=== PATIENT | female | born 1955 | race Caucasian/White ===

== ENCOUNTER 2017-03-26 11:12 | Inpatient (IN) ==
--- NOTE | 2017-03-26 11:55 | Ultrasound Report ---
US venous doppler LE LT Indication: Swelling left lower extremity. Comparison: None. Technique: Grayscale, spectral, and color Doppler interrogation of the left lower extremity veins was performed. Augmentation and compression was performed. Findings: Grayscale, color Doppler, and pulsed Doppler evaluation of the veins of the left lower extremity demonstrates no evidence of deep venous thrombosis. IMPRESSION: No evidence of deep venous thrombosis in the left lower extremity. PROCEDURE INTERPRETED AT [facility] DEPARTMENT OF RADIOLOGY Final Report Signed by: Dr Eulalio Matthew
[2017-03-26 12:11] LABS: Basophils % 0.2 % (0.0-0.8); Eosinophils % 0.3 % (0.00-10.9); Hematocrit 37.1 VOL% (35.7-47.0); Hemoglobin 11.9 GM/DL (12.0-16.0); Immature Granulocytes % 0.5 %; Immature Granulocytes Absolute 0.07 #; Lymphocytes # 0.9 10*3/uL (1.4-4.0); Lymphocytes % 6.6 % (21.3-54.2); Mean Corpuscular HGB Conc 32.1 GM/DL (32-36); Mean Corpuscular Hemoglobin 29 PG (27-34); Mean Corpuscular Volume 91.6 FL (87-102); Mean Platelet Volume 10.3 FL (9.6-12.0); Monocytes # 0.3 10*3/uL (0.11-0.8); Monocytes % 2.1 % (1.7-12.7); Neutrophils # 12.8 10*3/uL (1.4-7.4); Neutrophils % 90.3 % (38.7-73.9); Platelet Count 309 T/CUMM (130-400); Red Blood Count 4.05 MC/CUMM (3.8-5.5); Red Cell Distribution Width 15.2 % (9.3-17.3); White Blood Count 14.1 T/CUMM (4-12)
[2017-03-26 12:33] LABS: Albumin 3.6 G/DL (3.4-5.0); Bilirubin,Total 0.8 MG/DL (0.2-1.0); Osmolality,Calculated 266.4 MOS/KG (273-304); Potassium 4.1 MMOL/L (3.5-5.1); Total Protein 8.3 G/DL (6.4-8.3)
[2017-03-26] MEDS ORDERED: HYDROmorphone 2 MG/1 ML VIAL IV STA (12:36)
[2017-03-26] MEDS ORDERED: ONDANSETRON 4 MG/2 ML VIAL IV STA (12:36)
[2017-03-26] MEDS ORDERED: HYDROmorphone 2 MG/1 ML VIAL ONE (12:41)
[2017-03-26] MEDS ORDERED: ONDANSETRON 4 MG/2 ML VIAL ONE (12:41)
[2017-03-26] MEDS ORDERED: CLINDAMYCIN INJ 900 MG in PREMIX 1 EACH IV STA (12:46)
[2017-03-26 12:50] LABS: Macrocytosis Slight; Microcytosis Slight; Poikilocytosis 3+
[2017-03-26] MEDS ORDERED: CLINDAMYCIN 600 MG/4 ML VIAL ONE (12:50)
--- NOTE | 2017-03-26 12:55 | Emergency Department Note ---
Arrival - Arrival Chief Complaint: Extremity Problem Stated Complaint: left leg all red pain all down ED Nursing Triage Note: pt has had redness and swelling to lt leg for a few days. pt has an appointment to get an ultrsound but not until the end of the month Mode of Arrival: Wheelchair Source: Patient Time Seen by Provider: 03/26/17 11:27 - History of Present Illness HPI Narrative: 62 y/o white female presents to the ER complaining of left lower ext pain, swelling, erythema, and warmth. Patient states she had a melanoma removed from her left calf along with lymph nodes from her left groin in September. States she has had swelling to left lower ext ever since her surgery. Erythema, warmth , and pain just started two days ago. Also report fever, chills, and body aches. Surgery was performed by Dr. Dietz at [facility]. She is scheduled for a doppler to left lower ext to rule out DVT at the end of this month. Past medical history significant for melanoma. Onset (ago): day(s) (2) Consistency: constant Severity: moderate Quality: aching Allergies/Adverse Reactions: Allergies Allergy/AdvReac Type Severity Reaction Status Date / Time No Known Allergies Allergy Verified 10/08/16 11:23 Home Medications: Home Medications Medication Instructions Recorded Confirmed Type Cyclobenzaprine [Flexeril] 10 mg PO TID #20 tablet 12/26/14 Rx Ibuprofen Tab [Motrin Tab] 800 mg PO Q6H #20 tablet 12/26/14 Rx Methocarbamol [Methocarbamol] 1 tablet PO DAILY 12/26/14 12/26/14 History Tramadol HCl [Tramadol HCl] 1 tablet PO Q4-6H PRN 12/26/14 12/26/14 History Amoxicillin Cap/Tab 500 mg PO Q8HR #20 capsule 10/08/16 Rx Review of System - Review of System 12 point system: reviewed and no additional remarkable complaints except as stated - Review of System Musculoskeletal: Present: leg pain (left lower ext pain, erythema, warmth ) Medical,Surgical,& Family Hx - Medical History Other: History of: Cancer, Miscellaneous Medical Problems (Melanoma) - Social History Smoking Status: Never smoker Frequency of Alcohol Use: None Type of Drug Use: None Exam Vital Signs: Vital Signs Temperature 97.0 F L 03/26/17 11:30 Pulse Rate 78 03/26/17 13:11 Respiratory Rate 18 03/26/17 13:11 Blood Pressure 99/67 03/26/17 13:11 O2 Sat by Pulse Oximetry 100 03/26/17 11:19 - General General appearance: alert, in no apparent distress - ENT ENT exam: Present: normal exam, normal oropharynx, mucous membranes moist - Chest Chest inspection: Present: normal inspection - Respiratory Respiratory exam: Present: normal lung sounds bilaterally - Cardiovascular Cardiovascular exam: Present: regular rate, normal rhythm, normal heart sounds - Abdominal Exam Abdominal exam: Present: soft, normal bowel sounds. Absent: tenderness - Extremities Exam Extremities exam: Present: normal inspection, full ROM, calf tenderness (left ) - Neurological Exam Neurological exam: Present: alert, oriented X3 - Psychiatric Psychiatric exam: Present: normal affect, normal mood - Skin Skin exam: Present: warm, dry, erythema (erythema, warmth and swelling that extends from left foot to left thigh; large amount of swelling; pedal pulse strong and equal bilaterally) Course - Consultations Consultation #1: Hospitalist Time: 12:50 (Will admit to Hospitalist ) Results - Labs CBC & BMP: 03/26/17 11:46 03/26/17 11:46 Lab Results: I have reviewed the patients labs - Diagnostic Findings Procedure: Ultrasound: image reviewed by me, report reviewed by me (venous duplex: negative for DVT ) Disposition Clinical Impression: Cellulitis Case discussed with: patient Condition: Stable
--- NOTE | 2017-03-26 13:43 | Hospitalist History & Physical ---
<Jude Batista - Last Filed: 03/26/17 15:33> Assessment and Plan (1) Cellulitis Status: Acute Assessment and plan: Admit as inpatient. Pt. will receive IV antibiotics. Immobilization and elevation of the leg. Current Visit: Yes (2) Melanoma Status: Chronic Assessment and plan: Pt is s/p cancer removal in September. Current Visit: Yes History of Present Illness Chief complaint: leg pain History of present illness: Ms. Monterroso is a 62 year old white female with a history of skin cancer that presented to the ED today for evaluation of left lower extremity pain and edema. Patient reports that she had a melanoma removed from the left calf area along with lymph nodes from her left groin in September by physician at [facility]. Pt. states that 2 days ago she began to experience pain to the left lower extremity along with erythema and warmth. Patient states that she has a high tolerance for pain but she could no longer "stand it" and came for further evaluation. Patient also states that she had a fever along with chills and body aches. Patient denies any shortness of breath or chest pain associated with those symptoms. On examination in the ED, the left lower extremity is very edematous with 3+ pitting edema, radiated, and warm to touch. Patient reported that she was scheduled to have a Doppler performed to the left lower extremity to rule out DVT later this month. Venous Doppler study was performed showed no evidence of DVT left lower extremity. Patient will be admitted to the hospitalist service for further therapy. Allergies Allergy/AdvReac Type Severity Reaction Status Date / Time No Known Allergies Allergy Verified 10/08/16 11:23 Medical,Surgical,& Family Hx - Medical History Other: History of: Cancer, Miscellaneous Medical Problems (Melanoma) - Social History Smoking Status: Never smoker Frequency of Alcohol Use: None Type of Drug Use: None Functional capacity: independent ambulation - Constitutional Constitutional: Present: chills, fever(s), night sweats - EENT Eyes: Absent: loss of vision Ears: Absent: decreased hearing Nose, mouth and throat: Absent: headache(s) - Cardiovascular Cardiovascular: Present: edema. Absent: chest pain at rest, dyspnea on exertion , radiating jaw, neck or arm pain - Gastrointestinal Gastrointestinal: Absent: abdominal pain, nausea, vomiting - Genitourinary Genitourinary: Absent: difficulty urinating, hematuria - Musculoskeletal Musculoskeletal: Present: limited range of motion - Neurological Neurological: Absent: confusion, dizziness - Psychiatric Psychiatric: Absent: confusion Exam - Constitutional Vitals: Period Temp Pulse Resp BP Sys/Anderson Pulse Ox Last 24 Hr 97.0 F-97.0 F 78-81 18-18 99-113/67-83 100 General appearance: no acute distress, over weight - Head Head exam: Present: normal inspection, normocephalic - Eye Eye exam: Present: EOMI Pupils: Present: LEONARDA - ENT ENT exam: Present: normal exam - Neck Neck exam: Present: normal inspection. Absent: thyromegaly - Respiratory Respiratory exam: Present: clear to auscultation bilaterally. Absent: wheezes - Cardiovascular Cardiovascular exam: Present: regular rate and rhythm - GI/Abdominal GI/Abdominal exam: Present: normal bowel sounds, soft. Absent: tenderness - Extremities Exam Extremities exam: Present: normal capillary refill, calf tenderness, edema (3+ pitting edema to left lower extremity. This leg is reddened and very warm to touch. ). Absent: full ROM - Neurological Exam Neurological exam: Present: alert, oriented X3 - Psychiatric Psychiatric exam: Present: normal affect, normal mood - Skin Skin exam: Present: normal color, warm, dry Results - Labs CBC & BMP: 03/26/17 11:46 03/26/17 11:46 Lab Results: I have reviewed the past 24 hour labs <Elisabet Dumont - Last Filed: 03/26/17 17:01> History of Present Illness History of present illness: Ms. Monterroso is a 62 year old female who had surgery for a melanoma at the left calf area and had since been having some occasional swellings on her left LE. She developed pain, erythema, warmth over the last two days that progressed.He is on admission for cellulitis and Doppler USS showed no DVT. Plan IV Cleocin Blood cultures DVT prophylaxis Elevate leg Pain meds Agree with IVF, BP is borderline low UA, A!C, Lipids, TSH CBC, BMP in am Exam - Constitutional Vitals: Period Temp Pulse Resp BP Sys/Anderson Pulse Ox Last 24 Hr 97.0 F-98.3 F 70-81 16-18 90-113/63-83 94-100 Results - Labs CBC & BMP: 03/26/17 11:46 03/26/17 11:46
[2017-03-26] MEDS ORDERED: ACETAMINOPHEN 325 MG TABLET PO PRN (14:15)
[2017-03-26] MEDS ORDERED: ONDANSETRON 4 MG/2 ML VIAL IV PRN (14:15)
[2017-03-26] MEDS: SODIUM CHLORIDE 0.9% 1,000 ML IV SCH (14:45)
[2017-03-26] MEDS ORDERED: MORPHINE 2 MG/1 ML SYRINGE IV PRN (17:00)
[2017-03-26] MEDS: ENOXAPARIN 40 MG/0.4 ML SYRINGE SUBCUT SCH (20:59)
[2017-03-26] MEDS: CLINDAMYCIN INJ 900 MG in PREMIX 1 EACH IV SCH (21:00)
[2017-03-27] MEDS ORDERED: SODIUM CHLORIDE 0.9% 500 ML IV ONE (00:59)
[2017-03-27] MEDS: CLINDAMYCIN INJ 900 MG in PREMIX 1 EACH IV SCH ×3 (04:54→21:12)
[2017-03-27] MEDS: SODIUM CHLORIDE 0.9% 1,000 ML IV SCH ×2 (05:00→19:32)
[2017-03-27 06:38] LABS: Basophils % 0.2 % (0.0-0.8); Eosinophils % 0.3 % (0.00-10.9); Hematocrit 27.8 VOL% (35.7-47.0); Hemoglobin 8.9 GM/DL (12.0-16.0); Immature Granulocytes % 0.6 %; Immature Granulocytes Absolute 0.08 #; Lymphocytes # 1.2 10*3/uL (1.4-4.0); Lymphocytes % 9.3 % (21.3-54.2); Mean Corpuscular Hemoglobin 30 PG (27-34); Mean Corpuscular Volume 92.4 FL (87-102); Mean Platelet Volume 10.8 FL (9.6-12.0); Monocytes # 0.5 10*3/uL (0.11-0.8); Monocytes % 3.5 % (1.7-12.7); Neutrophils # 11.2 10*3/uL (1.4-7.4); Neutrophils % 86.1 % (38.7-73.9); Platelet Count 279 T/CUMM (130-400); Red Blood Count 3.01 MC/CUMM (3.8-5.5); Red Cell Distribution Width 15.2 % (9.3-17.3)
[2017-03-27 06:43] LABS: Apearance,Urine CLEAR (Clear); Bilirubin,Urine Negative (Negative); Blood, Urine Negative (Negative); Glucose,Urine (UA) Negative (Negative); Ketones,Urine Negative (Negative); Nitrite,Urine Negative (Negative); Protein,Urine 30 MG/DL; RBC,Urine <1 /HPF (0-4); Squamous Epithelial Cell,Urine Occasional /HPF (0-10); Urine Color Yellow (Yellow); Urine Specific Gravity 1.017 (1.001-1.035); WBC,Urine 3 /HPF (0-6)
[2017-03-27 07:22] LABS: Calcium 8.3 MG/DL (8.5-10.1); Magnesium 2.2 MG/DL (1.8-2.4); Osmolality,Calculated 271.8 MOS/KG (273-304); Potassium 4.3 MMOL/L (3.5-5.1); Risk Ratio 5.42; Thyroid Stimulating Hormone 74.3 uIU/ml (0.358-3.74); VLDL CHOLESTEROL 19.4 MG/DL
[2017-03-27] MEDS: PANTOPRAZOLE 40 MG TABLET PO SCH (09:32)
--- NOTE | 2017-03-27 13:11 | Hospitalist Progress Note ---
Assessment and Plan (1) Left leg cellulitis Status: Acute Assessment and plan: Continue with Cleocin, pain meds. .BC-showed no growth so far. Doppler negative for a DVT. Wound care Nurse consult for possible wrapping to reduce edema Current Visit: Yes (2) Melanoma Status: Chronic Assessment and plan: Pt is s/p cancer removal in September. Current Visit: Yes (3) Hypotension Status: Acute Assessment and plan: continue ivF Current Visit: Yes (4) Hypothyroidism Status: Acute Assessment and plan: Will start synthroid Current Visit: Yes Hospitalist: Subjective Interval history: Patient states she is hurting in her leg leg. Exam - Constitutional Vitals: Period Temp Pulse Resp BP Sys/Anderson Pulse Ox Last 24 Hr 96.4 F-98.3 F 64-78 16-20 78-99/43-67 90-95 General appearance: no acute distress - Head Head exam: Present: normal inspection - Neck Neck exam: Present: normal inspection - Respiratory Respiratory exam: Present: clear to auscultation bilaterally - Cardiovascular Cardiovascular exam: Present: regular rate and rhythm - GI/Abdominal GI/Abdominal exam: Present: normal bowel sounds - Extremities Exam Extremities exam: Present: other (swelling redness and tenderness of the left leg) - Neurological Exam Neurological exam: Present: alert, oriented X3 Results - Labs CBC & BMP: 03/27/17 05:26 03/27/17 05:26 Lab Results: I have reviewed the past 24 hour labs
[2017-03-27] MEDS: ENOXAPARIN 40 MG/0.4 ML SYRINGE SUBCUT SCH (21:13)
[2017-03-28] MEDS: CLINDAMYCIN INJ 900 MG in PREMIX 1 EACH IV SCH ×3 (05:48→20:31)
[2017-03-28] MEDS: LEVOTHYROXINE 75 MCG TABLET PO SCH (06:40)
[2017-03-28 07:12] LABS: Basophils % 0.2 % (0.0-0.8); Eosinophils # 0.1 10*3/uL (0.0-0.87); Eosinophils % 0.9 % (0.00-10.9); Hematocrit 27.9 VOL% (35.7-47.0); Immature Granulocytes % 1.2 %; Immature Granulocytes Absolute 0.16 #; Lymphocytes # 1.3 10*3/uL (1.4-4.0); Lymphocytes % 9.3 % (21.3-54.2); Mean Corpuscular HGB Conc 32.3 GM/DL (32-36); Mean Corpuscular Hemoglobin 30 PG (27-34); Mean Corpuscular Volume 92.4 FL (87-102); Mean Platelet Volume 10.2 FL (9.6-12.0); Monocytes # 0.7 10*3/uL (0.11-0.8); Monocytes % 5.1 % (1.7-12.7); Neutrophils # 11.3 10*3/uL (1.4-7.4); Neutrophils % 83.3 % (38.7-73.9); Platelet Count 294 T/CUMM (130-400); Red Blood Count 3.02 MC/CUMM (3.8-5.5); Red Cell Distribution Width 15.3 % (9.3-17.3); White Blood Count 13.6 T/CUMM (4-12)
[2017-03-28 07:44] LABS: Calcium 7.9 MG/DL (8.5-10.1); Osmolality,Calculated 271.8 MOS/KG (273-304)
[2017-03-28 07:53] LABS: Band Neutrophils 3 % (0-10); Hypochromasia Slight; Lymphocytes 5 % (20-55); Microcytosis Slight; Segmented Neutrophils 91 % (50-85); Total Cells Counted 100
[2017-03-28] MEDS: PANTOPRAZOLE 40 MG TABLET PO SCH (09:35)
[2017-03-28] MEDS: SODIUM CHLORIDE 0.9% 1,000 ML IV SCH (09:41)
--- NOTE | 2017-03-28 14:37 | Hospitalist Progress Note ---
Assessment and Plan (1) Left leg cellulitis Status: Acute Assessment and plan: Not really improving. Continue with Cleocin, pain meds. .BC-showed no growth so far. Doppler negative for a DVT. Wound care Nurse consult for possible wrapping to reduce edema Plan ID consult MRI of the leg Current Visit: Yes (2) Melanoma Status: Chronic Assessment and plan: Pt is s/p cancer removal in September. Current Visit: Yes (3) Hypotension Status: Acute Assessment and plan: stable, will dc IVF Current Visit: Yes (4) Hypothyroidism Status: Acute Assessment and plan: Continue with synthroid Current Visit: Yes Hospitalist: Subjective Interval history: patient seen. Cellulitis is not really improving. ID has been consulted. Exam - Constitutional Vitals: Period Temp Pulse Resp BP Sys/Anderson Pulse Ox Last 24 Hr 97.1 F-98.0 F 64-74 16-20 88-104/52-68 90-97 General appearance: no acute distress, morbidly obese - Head Head exam: Present: normal inspection - Respiratory Respiratory exam: Present: clear to auscultation bilaterally - Cardiovascular Cardiovascular exam: Present: regular rate and rhythm - GI/Abdominal GI/Abdominal exam: Present: normal bowel sounds - Extremities Exam Extremities exam: Present: other (leg leg cellultitis) - Neurological Exam Neurological exam: Present: alert, oriented X3 Results - Labs CBC & BMP: 03/28/17 06:53 03/28/17 06:53 Lab Results: I have reviewed the past 24 hour labs
[2017-03-28] MEDS: DESITIN 4OZ/NYSTATIN 15 GRAM MIXTURE PASTE TOP SCH ×2 (15:10→20:32)
--- NOTE | 2017-03-28 16:13 | Infectious Disease Consult ---
Assessment and Plan (1) Cellulitis Status: Acute Assessment and plan: Suspect streptococcal is because of the cellulitis I am surprised that she has not improved on the clindamycin. Recommendations at cefazolin 1 g IV every 6 hours. Will review tomorrow and if she is worse then we may have to switch from clindamycin to vancomycin. Thank you very much for the consult. Will follow. Discussed with Dr. Luong Current Visit: Yes (2) Candidal intertrigo Status: Acute Assessment and plan: This is quite significant. Will prescribe a 5 day course of oral fluconazole and also give clotrimazole cream for topical application. Current Visit: Yes History of Present Illness Chief complaint: Cellulitis left leg History of present illness: Ms. Monterroso is a 62 year old female was well until September this year when she was diagnosed with melanoma to posterior aspect of left leg. She had surgical resection and also resection of some of the left inguinal lymph nodes. As result of the surgery patient has chronic swelling on the left leg. She presented 2 days ago with 1 day history of redness and worsening of the baseline swelling of her left leg and thigh. There was associated pain especially with walking. She had chills but never fever. She came to the hospital and was assessed as having cellulitis and started on clindamycin. Today the redness is a bit worse as is the swelling and so I am asked to assist with management. Home Medications Medication Instructions Recorded Confirmed Type No Known Home Medications [No 03/28/17 03/28/17 History Known Home Medications] Allergies Allergy/AdvReac Type Severity Reaction Status Date / Time No Known Allergies Allergy Verified 10/08/16 11:23 12 point system: reviewed and no additional remarkable complaints except as stated (Per HPI) Medical,Surgical,& Family Hx - Medical History Other: History of: Cancer, Miscellaneous Medical Problems (Melanoma) - Family History Family History: Reports;: Family Cancer (brother), Family Diabetes (dad), Family Heart Disease (dad), Family Stroke (dad) Denies;: Family Psychiatric Problems - Social History Smoking Status: Never smoker Frequency of Alcohol Use: None Type of Drug Use: None Infectious Disease Exam H&P - Constitutional Vitals: Vital Signs Temp Pulse Resp BP Pulse Ox 98.0 F 73 16 91/55 92 L 03/28/17 12:00 03/28/17 12:00 03/28/17 14:00 03/28/17 12:00 03/28/17 12:00 Intake and Output 03/28/17 03/28/17 03/28/17 07:59 15:59 23:59 Intake Total 50 / 50 2120 / 2120 Output Total 420 / 420 Balance 50 / 50 1700 / 1700 Intake: IV 50 / 50 1000 / 1000 Cleocin Inj 900 mg In 50 / 50 Premix 1 Each @ 100 mls/ hr IV Q8H JESIKA Rx#: [id number] Ns 1,000 ml @ 75 mls/hr 1000 / 1000 IV .[id number] JESIKA Rx#: [id number] Intake - Additional IV 700 / 700 Volume (mLs) Oral 420 / 420 Output: Urine 420 / 420 Other: Voiding Method Toilet # Voids 1 2 Exam: General: Patient relatively comfortable but a bit unkempt HEENT: Mucous membranes pink and moist, anicteric acyanotic, LEONARDA, no oropharyngeal exudates Neck: Supple, no thyroid gland enlargement Respiratory system: Breath sounds vesicular, no crepitations or wheezes Cardiovascular: Normal S1 and S2, no murmurs appreciated Abdomen: Normal bowel sounds, soft nontender throughout, no organomegaly or mass Genitourinary: No suprapubic pain or bladder distention Extremities: Moderate to severe edema of left lower extremity from leg to thigh , there is diffuse erythema over dorsal foot extending up leg and involving patches of the thigh. There is a tender to touch and hyperemic. No open wounds or areas of draining. Skin: Erythematous macerated rash in left groin crease and also intergluteal cleft Reports - Labs CBC & BMP: 03/28/17 06:53 03/28/17 06:53 Labs: Laboratory Results - last 24 hr 03/28/17 03/28/17 06:53 06:53 WBC 13.6 H RBC 3.02 L Hgb 9.0 L Hct 27.9 L MCV 92.4 MCH 30 MCHC 32.3 RDW 15.3 Plt Count 294 MPV 10.2 Neut % (Auto) 83.3 H Lymph % (Auto) 9.3 L Gregory % (Auto) 5.1 Eos % (Auto) 0.9 Baso % (Auto) 0.2 Neut # (Auto) 11.3 H Lymph # (Auto) 1.3 L Gregory # (Auto) 0.7 Eos # (Auto) 0.1 Baso # (Auto) 0.0 Total Counted 100 Immature Gran % 1.2 Nucleated RBC % 0.0 Immature Gran # 0.16 Segmented Neutrophils 91 H Band Neutrophils 3 Lymphocytes 5 L Monocytes 1 L Nucleated RBCs # 0.00 Immature Plt Fraction 0.0 Hypochromasia Slight Microcytosis Slight Morphology Comment Sodium 137 Potassium 4.0 Chloride 106 Carbon Dioxide 25 Anion Gap 10.0 BUN 9 Creatinine 0.80 GFR Calculation 105 BUN/Creatinine Ratio 11.00 Glucose 93 Calculated Osmolality 271.8 L Calcium 7.9 L - Reports Microbiology: Microbiology 03/26/17 11:46 Blood Culture - Preliminary Blood No growth at 1 day 03/26/17 11:46 Blood Culture - Preliminary Blood No growth at 1 day - Diagnostic Findings Procedure: Ultrasound: report reviewed by me (Venous Doppler negative for DVT left leg)
[2017-03-28] MEDS: FLUCONAZOLE 100 MG TABLET PO SCH (17:20)
--- NOTE | 2017-03-28 17:30 | Magnetic Resonance Report ---
History: Left leg cellulitis. Left leg edema Date: 03/28/2017 Study: MRI left tibia and fibula with and without IV contrast Comparison exam: No previous MRI study available for comparison The left tibia and fibula were imaged in 3 planes before and after the IV administration of 20 ml Dotarem contrast on the 1.2 Milagros open magnet, to include STIR and pre and postcontrast T1-weighted sequences. There is no abnormal marrow edema. There is no osseous mass or abnormal periosteal reaction. There is no obvious soft tissue abscess. There is prominent edema of the subcutaneous and deep fat throughout the visualized left lower extremity in this patient with reported cellulitis. There is a potential cylindrical filling defect within the posterior tibial vein, suggesting potential below the knee deep venous thrombosis as discussed with the [facility] staff by telephone at the time of dictation. Impression: Extensive soft tissue edema throughout the left lower extremity. No abscess. No focal bony abnormality; specifically, no evidence to specifically suggest osteomyelitis. There is a potential acute deep venous thrombosis in the posterior tibial vein. Recommend repeat venous ultrasound for confirmation as discussed with floor personnel by telephone PROCEDURE INTERPRETED AT [facility] DEPARTMENT OF RADIOLOGY Final Report Signed by: Dr. Yuliana Lind
--- NOTE | 2017-03-28 19:41 | Ultrasound Report ---
US venous doppler LE LT Indication: Left lower extremity pain and swelling. Comparison: None. Technique: Using transcutaneous probe, color Doppler, spectral Doppler, and grayscale images prior to and following compression were obtained of the left lower extremity. Ultrasound images were captured and stored. Interrogated venous structures include the left common femoral vein, superficial femoral vein (proximal, mid, and distal), and popliteal vein. Findings: There is no evidence of thrombus within the interrogated venous structures. color flow as well as spectral flow are present within the interrogated venous segments. Impression: 1. No evidence of venous thrombosis. 03/28/2017 7:37 PM PROCEDURE INTERPRETED AT [facility] DEPARTMENT OF RADIOLOGY Final Report Signed by: Dr. Jacobo Conn
[2017-03-28] MEDS: CLOTRIMAZOLE 1% CREAM 15 GM TUBE TOP SCH (20:31)
[2017-03-28] MEDS: ENOXAPARIN 40 MG/0.4 ML SYRINGE SUBCUT SCH (20:31)
[2017-03-29] MEDS: CLINDAMYCIN INJ 900 MG in PREMIX 1 EACH IV SCH ×3 (05:00→20:16)
[2017-03-29] MEDS: LEVOTHYROXINE 75 MCG TABLET PO SCH (06:43)
[2017-03-29] MEDS: FLUCONAZOLE 100 MG TABLET PO SCH (08:13)
[2017-03-29] MEDS: DESITIN 4OZ/NYSTATIN 15 GRAM MIXTURE PASTE TOP SCH ×2 (08:14→20:17)
[2017-03-29] MEDS: CLOTRIMAZOLE 1% CREAM 15 GM TUBE TOP SCH ×2 (08:14→20:17)
[2017-03-29] MEDS: PANTOPRAZOLE 40 MG TABLET PO SCH (08:14)
--- NOTE | 2017-03-29 12:22 | Infectious Disease Progress ---
Assessment and Plan (1) Cellulitis Status: Acute Assessment and plan: Not really improved but certainly not worse. Continue current antibiotics but if no improvement tomorrow or if she spikes a fever or the leukocytosis worsens then switch from clindamycin to vancomycin. Current Visit: Yes (2) Candidal intertrigo Status: Acute Assessment and plan: Continue antifungal therapy Current Visit: Yes Infectious Disease - PN: Subj Interval history: Patient doing okay, no fever, no nausea vomiting or diarrhea on the antibiotics. She does not think her left leg is better than yesterday but it certainly not worse. Infectious Disease Exam (PN) - Constitutional Vitals: Temp Pulse Resp BP Pulse Ox 98.1 F 66 20 104/69 91 L 03/29/17 08:00 03/29/17 08:00 03/29/17 08:00 03/29/17 08:00 03/29/17 08:00 General appearance: no acute distress, morbidly obese Exam: General appearance: no acute distress - Eye Eye exam: Present: EOMI. no icterus Pupils: Present: LEONARDA - ENT ENT exam: no oral exudates - Respiratory Respiratory exam: vesicular BS, no crepitations or wheezes - Cardiovascular Cardiovascular exam: regular rate and rhythm, no murmurs - GI/Abdominal GI/Abdominal exam: normal bowel sounds, soft, non-tender, no organomegaly or mass - Extremities Exam Extremities exam: Possibly mildly improved edema to left lower extremity, she still has significant erythema in patches on the thigh and almost circumferentially around the leg which is not worse than yesterday but today States any better. There is MATT less swelling as evidenced by some wrinkling of the skin. Areas are still hyperemic and tender to touch. - Skin Skin exam: Rash to left groin crease and intergluteal cleft with antifungal cream, looks less macerated than yesterday Results - Labs CBC & BMP: 03/28/17 06:53 03/28/17 06:53 Lab Results: I have reviewed the past 24 hour labs (Blood cultures negative to date)
--- NOTE | 2017-03-29 13:08 | Hospitalist Progress Note ---
Assessment and Plan (1) Left leg cellulitis Status: Acute Assessment and plan: Follow ID's recommendations.MRI showed no osteomyelitis or abscess. BC-showed no growth so far. Doppler negative for a DVT. Wound care Nurse consult Plan continue current antibiotic regime will give IV Lasix x1, watch bp Current Visit: Yes (2) Melanoma Status: Chronic Assessment and plan: Pt is s/p cancer removal in September. Current Visit: Yes (3) Hypotension Status: Acute Assessment and plan: stable, Current Visit: Yes (4) Hypothyroidism Status: Acute Assessment and plan: Continue with synthroid Current Visit: Yes Hospitalist: Subjective Interval history: Patient seen this am. No new complaints. ID saw yesterday and made some recommendations. Exam - Constitutional Vitals: Period Temp Pulse Resp BP Sys/Anderson Pulse Ox Last 24 Hr 96.9 F-98.1 F 64-67 14-20 92-104/50-69 91-95 General appearance: no acute distress - Head Head exam: Present: normal inspection - Respiratory Respiratory exam: Present: clear to auscultation bilaterally - Cardiovascular Cardiovascular exam: Present: regular rate and rhythm - GI/Abdominal GI/Abdominal exam: Present: normal bowel sounds - Extremities Exam Extremities exam: Present: other (left leg cellulitis) - Neurological Exam Neurological exam: Present: alert, oriented X3 Results - Labs CBC & BMP: 03/28/17 06:53 03/28/17 06:53 Lab Results: I have reviewed the past 24 hour labs
[2017-03-29] MEDS ORDERED: FUROSEMIDE 40 MG/4 ML VIAL IV ONE (13:11)
[2017-03-29] MEDS: ENOXAPARIN 40 MG/0.4 ML SYRINGE SUBCUT SCH (20:17)
[2017-03-30 04:11] LABS: Basophils % 0.3 % (0.0-0.8); Eosinophils # 0.2 10*3/uL (0.0-0.87); Eosinophils % 1.2 % (0.00-10.9); Hematocrit 27.9 VOL% (35.7-47.0); Hemoglobin 9.4 GM/DL (12.0-16.0); Immature Granulocytes % 5.1 %; Immature Granulocytes Absolute 0.74 #; Lymphocytes # 1.9 10*3/uL (1.4-4.0); Lymphocytes % 13.3 % (21.3-54.2); Mean Corpuscular HGB Conc 33.7 GM/DL (32-36); Mean Corpuscular Hemoglobin 30 PG (27-34); Mean Corpuscular Volume 89.4 FL (87-102); Mean Platelet Volume 10.4 FL (9.6-12.0); Monocytes # 0.9 10*3/uL (0.11-0.8); Monocytes % 6.4 % (1.7-12.7); Neutrophils # 10.7 10*3/uL (1.4-7.4); Neutrophils % 73.7 % (38.7-73.9); Platelet Count 379 T/CUMM (130-400); Red Blood Count 3.12 MC/CUMM (3.8-5.5); Red Cell Distribution Width 15.4 % (9.3-17.3); White Blood Count 14.6 T/CUMM (4-12)
[2017-03-30 04:38] LABS: Calcium 8.3 MG/DL (8.5-10.1); Osmolality,Calculated 272.7 MOS/KG (273-304); Potassium 3.7 MMOL/L (3.5-5.1)
[2017-03-30 05:00] LABS: Anisocytosis 1+; Band Neutrophils 2 % (0-10); Eosinophils 2 % (0-10); Hypochromasia 1+; Lymphocytes 10 % (20-55); Metamyelocytes 1 %; Platelet Estimate Normal; Segmented Neutrophils 83 % (50-85); Total Cells Counted 100
[2017-03-30] MEDS: CLINDAMYCIN INJ 900 MG in PREMIX 1 EACH IV SCH ×3 (06:31→20:03)
[2017-03-30] MEDS: LEVOTHYROXINE 75 MCG TABLET PO SCH (06:31)
[2017-03-30] MEDS: FLUCONAZOLE 100 MG TABLET PO SCH (08:07)
[2017-03-30] MEDS: PANTOPRAZOLE 40 MG TABLET PO SCH (08:07)
[2017-03-30] MEDS: DESITIN 4OZ/NYSTATIN 15 GRAM MIXTURE PASTE TOP SCH ×2 (08:07→20:03)
[2017-03-30] MEDS: CLOTRIMAZOLE 1% CREAM 15 GM TUBE TOP SCH ×2 (08:07→20:02)
--- NOTE | 2017-03-30 11:07 | Hospitalist Progress Note ---
Assessment and Plan (1) Left leg cellulitis Status: Acute Assessment and plan: Follow ID's recommendations.MRI showed no osteomyelitis or abscess. BC-showed no growth so far. Doppler negative for a DVT. Wound care Nurse consult Plan continue current antibiotic regime will repeat IV Lasix x1, watch bp Current Visit: Yes (2) Melanoma Status: Chronic Assessment and plan: Pt is s/p cancer removal in September. Current Visit: Yes (3) Hypotension Status: Acute Assessment and plan: stable, Current Visit: Yes (4) Hypothyroidism Status: Acute Assessment and plan: Continue with synthroid Current Visit: Yes Hospitalist: Subjective Interval history: Patient seen. Her leg edema is slowly improving. Exam - Constitutional Vitals: Period Temp Pulse Resp BP Sys/Anderson Pulse Ox Last 24 Hr 97.0 F-98.2 F 60-87 15-21 94-112/51-72 86-95 General appearance: no acute distress - Head Head exam: Present: normal inspection - Respiratory Respiratory exam: Present: clear to auscultation bilaterally - Cardiovascular Cardiovascular exam: Present: regular rate and rhythm - GI/Abdominal GI/Abdominal exam: Present: normal bowel sounds - Extremities Exam Extremities exam: Present: other (erythema and swelling of the left leg) - Neurological Exam Neurological exam: Present: alert, oriented X3 Results - Labs CBC & BMP: 03/30/17 03:21 03/30/17 03:21 Lab Results: I have reviewed the past 24 hour labs
[2017-03-30] MEDS ORDERED: FUROSEMIDE 40 MG/4 ML VIAL IV ONE (11:08)
[2017-03-30] MEDS: ENOXAPARIN 40 MG/0.4 ML SYRINGE SUBCUT SCH (20:02)
[2017-03-31 04:52] LABS: Basophils # 0.1 10*3/uL (0.0-0.2); Basophils % 0.5 % (0.0-0.8); Eosinophils # 0.1 10*3/uL (0.0-0.87); Eosinophils % 0.7 % (0.00-10.9); Hematocrit 29.6 VOL% (35.7-47.0); Hemoglobin 9.7 GM/DL (12.0-16.0); Immature Granulocytes % 10.8 %; Immature Granulocytes Absolute 1.39 #; Lymphocytes # 2.1 10*3/uL (1.4-4.0); Lymphocytes % 16.3 % (21.3-54.2); Mean Corpuscular HGB Conc 32.8 GM/DL (32-36); Mean Corpuscular Hemoglobin 30 PG (27-34); Mean Platelet Volume 10.2 FL (9.6-12.0); Monocytes # 0.9 10*3/uL (0.11-0.8); Monocytes % 6.7 % (1.7-12.7); NRBC # 0.05 10*3/uL; Neutrophils # 8.4 10*3/uL (1.4-7.4); Platelet Count 467 T/CUMM (130-400); Red Blood Count 3.29 MC/CUMM (3.8-5.5); Red Cell Distribution Width 15.3 % (9.3-17.3); White Blood Count 12.9 T/CUMM (4-12)
[2017-03-31 05:18] LABS: Calcium 8.4 MG/DL (8.5-10.1); Osmolality,Calculated 273.5 MOS/KG (273-304); Potassium 4.1 MMOL/L (3.5-5.1)
[2017-03-31 05:31] LABS: Band Neutrophils 6 % (0-10); Lymphocytes 7 % (20-55); Metamyelocytes 1 %; Myelocytes 4 %; Nucleated Red Blood Cells 1 (0-5); Platelet Estimate Normal; Promyelocytes 1 %; Segmented Neutrophils 75 % (50-85); Total Cells Counted 100
[2017-03-31] MEDS: CLINDAMYCIN INJ 900 MG in PREMIX 1 EACH IV SCH (06:32)
[2017-03-31] MEDS: LEVOTHYROXINE 75 MCG TABLET PO SCH (06:33)
--- NOTE | 2017-03-31 11:31 | Hospitalist Progress Note ---
Assessment and Plan (1) Left leg cellulitis Status: Acute Assessment and plan: Not really improving. MRI showed no osteomyelitis or abscess. BC-showed no growth so far. Doppler negative for a DVT. Wound care Nurse consult Plan we will switch clindamycin to vanc as recommended by ID and place on a daily Lasix dose. Current Visit: Yes (2) Melanoma Status: Chronic Assessment and plan: Pt is s/p cancer removal in September. Current Visit: Yes (3) Hypotension Status: Acute Assessment and plan: stable, Current Visit: Yes (4) Hypothyroidism Status: Acute Assessment and plan: Continue with synthroid Current Visit: Yes Hospitalist: Subjective Interval history: Patient seen. Cellulitis is not really improving so we will switch Clindamysin to vancomycin as recommended by ID. Exam - Constitutional Vitals: Period Temp Pulse Resp BP Sys/Anderson Pulse Ox Last 24 Hr 97.2 F-97.6 F 57-96 15-20 88-112/59-75 88-97 General appearance: no acute distress, morbidly obese - Head Head exam: Present: normal inspection - Respiratory Respiratory exam: Present: clear to auscultation bilaterally - Cardiovascular Cardiovascular exam: Present: regular rate and rhythm - GI/Abdominal GI/Abdominal exam: Present: normal bowel sounds - Extremities Exam Extremities exam: Present: other (left swelling and cellulitis) - Neurological Exam Neurological exam: Present: alert, oriented X3 Results - Labs CBC & BMP: 03/31/17 03:53 03/31/17 03:53 Lab Results: I have reviewed the past 24 hour labs
[2017-03-31] MEDS: CLOTRIMAZOLE 1% CREAM 15 GM TUBE TOP SCH ×2 (11:52→22:12)
[2017-03-31] MEDS: PANTOPRAZOLE 40 MG TABLET PO SCH (11:52)
[2017-03-31] MEDS: DESITIN 4OZ/NYSTATIN 15 GRAM MIXTURE PASTE TOP SCH ×2 (11:52→22:11)
[2017-03-31] MEDS: FLUCONAZOLE 100 MG TABLET PO SCH (11:52)
[2017-03-31] MEDS: VANCOMYCIN INJ 1,750 MG in SODIUM CHLORIDE 0.9% 500 ML IV SCH ×2 (16:22→23:50)
[2017-03-31] MEDS: FUROSEMIDE 40 MG/4 ML VIAL IV SCH (16:22)
[2017-03-31] MEDS: ENOXAPARIN 40 MG/0.4 ML SYRINGE SUBCUT SCH (22:11)
[2017-04-01] MEDS: FUROSEMIDE 40 MG/4 ML VIAL IV SCH (08:17)
[2017-04-01] MEDS: PANTOPRAZOLE 40 MG TABLET PO SCH (08:18)
[2017-04-01] MEDS: FLUCONAZOLE 100 MG TABLET PO SCH (08:18)
[2017-04-01] MEDS: LEVOTHYROXINE 75 MCG TABLET PO SCH (08:18)
[2017-04-01] MEDS ORDERED: diphenhydrAMINE CAP 25 MG CAPSULE PO ONE (09:15)
[2017-04-01] MEDS: CLOTRIMAZOLE 1% CREAM 15 GM TUBE TOP SCH ×2 (09:23→22:55)
[2017-04-01] MEDS: DESITIN 4OZ/NYSTATIN 15 GRAM MIXTURE PASTE TOP SCH ×2 (09:24→22:54)
--- NOTE | 2017-04-01 11:46 | Hospitalist Progress Note ---
Assessment and Plan (1) Left leg cellulitis Status: Acute Assessment and plan: About the same. Vanc was started yesterday but patient developed some rash on her upper chest, we are suspecting vanc allergy. MRI showed no osteomyelitis or abscess. BC-showed no growth so far. Doppler negative for a DVT. Plan We will observe and look out for rash with vanc dose today, give benadryl prn and if rash re-occurs/worsens, we will dc vanc. Continue cefazolin, follow Id;s recommendations continue with IV Lasix Current Visit: Yes (2) Melanoma Status: Chronic Assessment and plan: Pt is s/p cancer removal in September. Current Visit: Yes (3) Hypotension Status: Acute Assessment and plan: stable, Current Visit: Yes (4) Hypothyroidism Status: Acute Assessment and plan: Continue with synthroid Current Visit: Yes Hospitalist: Subjective Interval history: patient seen. She developed some maculopapular itchy rash on her chest yesterday. We are suspecting a possible reaction to Vancomycin. Her cellulitis is about the same. Exam - Constitutional Vitals: Period Temp Pulse Resp BP Sys/Anderson Pulse Ox Last 24 Hr 97.2 F-98.4 F 60-67 18-20 94-113/60-75 92-96 General appearance: no acute distress - Head Head exam: Present: normal inspection - Respiratory Respiratory exam: Present: clear to auscultation bilaterally, other (erythema maculopapular rash on the upper chest) - Cardiovascular Cardiovascular exam: Present: regular rate and rhythm - GI/Abdominal GI/Abdominal exam: Present: normal bowel sounds - Extremities Exam Extremities exam: Present: normal inspection - Neurological Exam Neurological exam: Present: alert, oriented X3 Results - Labs CBC & BMP: 03/31/17 03:53 03/31/17 03:53 Lab Results: I have reviewed the past 24 hour labs
[2017-04-01] MEDS: VANCOMYCIN INJ 1,750 MG in SODIUM CHLORIDE 0.9% 500 ML IV SCH (11:50)
[2017-04-01] MEDS: diphenhydrAMINE CAP 25 MG CAPSULE PO PRN (13:36)
--- NOTE | 2017-04-01 14:29 | Infectious Disease Progress ---
Assessment and Plan (1) Cellulitis Status: Acute Assessment and plan: Somewhat better, almost resolved to left thigh however there is still significant cellulitis of the left leg. Leukocytosis is improving and she has not had any fever. Recommendations: I agree with the switch to vancomycin yesterday. Continue to monitor closely. Current Visit: Yes (2) Candidal intertrigo Status: Acute Assessment and plan: Improved with antifungal therapy Current Visit: Yes Infectious Disease - PN: Subj Interval history: Patient admits to less discomfort to left thigh however she still has swelling and pain of the left leg. Vancomycin was started yesterday and apparently there was concern for possible rash however she seems to be doing okay today. She has not had fever. No nausea vomiting or diarrhea. Infectious Disease Exam (PN) - Constitutional Vitals: Temp Pulse Resp BP Pulse Ox 97 F L 62 18 120/71 91 L 04/01/17 11:30 04/01/17 11:30 04/01/17 11:30 04/01/17 11:30 04/01/17 11:30 General appearance: no acute distress Exam: General appearance: no acute distress - Eye Eye exam: Present: EOMI. no icterus Pupils: Present: LEONARDA - ENT ENT exam: no oral exudates - Respiratory Respiratory exam: vesicular BS, no crepitations or wheezes - Cardiovascular Cardiovascular exam: regular rate and rhythm, no murmurs - GI/Abdominal GI/Abdominal exam: normal bowel sounds, soft, non-tender, no organomegaly or mass - Extremities Exam Extremities exam: Erythema to left thigh has almost resolved and there is some exfoliation of the skin, still significant edema and erythema to left leg with hyperemia and tenderness to touch - Skin Skin exam: Rash to left groin crease and intergluteal cleft significantly improved since last week Results - Labs CBC & BMP: 03/31/17 03:53 03/31/17 03:53 Lab Results: I have reviewed the past 24 hour labs (Blood cultures 2 sets negative)
[2017-04-01] MEDS: ENOXAPARIN 40 MG/0.4 ML SYRINGE SUBCUT SCH (22:54)
[2017-04-02] MEDS: diphenhydrAMINE CAP 25 MG CAPSULE PO PRN (00:51)
[2017-04-02] MEDS: VANCOMYCIN INJ 1,750 MG in SODIUM CHLORIDE 0.9% 500 ML IV SCH ×2 (00:56→14:09)
[2017-04-02 07:46] LABS: Calcium 8.5 MG/DL (8.5-10.1); Osmolality,Calculated 278.1 MOS/KG (273-304)
[2017-04-02] MEDS: PANTOPRAZOLE 40 MG TABLET PO SCH (09:40)
[2017-04-02] MEDS: LEVOTHYROXINE 75 MCG TABLET PO SCH (09:41)
[2017-04-02] MEDS: FUROSEMIDE 40 MG/4 ML VIAL IV SCH (09:42)
[2017-04-02] MEDS: CLOTRIMAZOLE 1% CREAM 15 GM TUBE TOP SCH ×2 (09:43→21:21)
[2017-04-02] MEDS: DESITIN 4OZ/NYSTATIN 15 GRAM MIXTURE PASTE TOP SCH ×2 (09:43→21:21)
--- NOTE | 2017-04-02 13:43 | Hospitalist Progress Note ---
Assessment and Plan (1) Left leg cellulitis Status: Acute Assessment and plan: Slowly improving. She no longer develops rash with antibiotic therapy.. MRI showed no osteomyelitis or abscess. BC-showed no growth so far. Doppler negative for a DVT. Plan Continue with current regime Increase IV Lasix to 40bid, watch bp Current Visit: Yes (2) Melanoma Status: Chronic Assessment and plan: Pt is s/p cancer removal in September. Current Visit: Yes (3) Hypotension Status: Acute Assessment and plan: stable, Current Visit: Yes (4) Hypothyroidism Status: Acute Assessment and plan: Continue with synthroid Current Visit: Yes Hospitalist: Subjective Interval history: Patient seen, she has no new complaints. Her cellulitis is slowly improving. She no longer develops spots on her chest with antibiotics. Exam - Constitutional Vitals: Period Temp Pulse Resp BP Sys/Anderson Pulse Ox Last 24 Hr 96.9 F-98.3 F 59-67 18-20 99-123/58-78 91-97 General appearance: no acute distress, over weight - Head Head exam: Present: normal inspection - Respiratory Respiratory exam: Present: clear to auscultation bilaterally - Cardiovascular Cardiovascular exam: Present: regular rate and rhythm - GI/Abdominal GI/Abdominal exam: Present: normal bowel sounds - Extremities Exam Extremities exam: Present: other (left leg cellulitis) - Neurological Exam Neurological exam: Present: alert, oriented X3 Results - Labs CBC & BMP: 03/31/17 03:53 04/02/17 06:51 Lab Results: I have reviewed the past 24 hour labs
--- NOTE | 2017-04-02 15:24 | Infectious Disease Progress ---
Assessment and Plan (1) Cellulitis Status: Acute Assessment and plan: Slowly improving and renal function normal on vancomycin, level of which is borderline supratherapeutic. Recommendations: 1. Adjust dose of vancomycin for trough closer to 15 2. Repeat creatinine tomorrow 3. Acute stop cefazolin Current Visit: Yes (2) Candidal intertrigo Status: Acute Assessment and plan: Improved with antifungal therapy Current Visit: Yes Infectious Disease - PN: Subj Interval history: Patient doing okay, admits to less pain to left lower extremity. No fever. No nausea vomiting or diarrhea on antibiotics. Infectious Disease Exam (PN) - Constitutional Vitals: Temp Pulse Resp BP Pulse Ox 96.9 F L 67 20 99/60 96 04/02/17 11:35 04/02/17 11:35 04/02/17 11:35 04/02/17 11:35 04/02/17 11:35 General appearance: no acute distress, over weight Exam: General appearance: no acute distress - Eye Eye exam: Present: EOMI. no icterus Pupils: Present: LEONARDA - ENT ENT exam: no oral exudates - Respiratory Respiratory exam: vesicular BS, no crepitations or wheezes - Cardiovascular Cardiovascular exam: regular rate and rhythm, no murmurs - GI/Abdominal GI/Abdominal exam: normal bowel sounds, soft, non-tender, no organomegaly or mass - Extremities Exam Extremities exam: Erythema to left thigh has almost resolved and there is some exfoliation of the skin, still significant edema and erythema to left leg with hyperemia and tenderness to touch but I think this is somewhat improved today - Skin Skin exam: Rash to left groin crease and intergluteal cleft Results - Labs CBC & BMP: 03/31/17 03:53 04/02/17 06:51 Lab Results: I have reviewed the past 24 hour labs
[2017-04-02] MEDS ORDERED: FUROSEMIDE 40 MG/4 ML VIAL IV SCH (21:00)
[2017-04-02] MEDS: ENOXAPARIN 40 MG/0.4 ML SYRINGE SUBCUT SCH (21:21)
[2017-04-03] MEDS: diphenhydrAMINE CAP 25 MG CAPSULE PO PRN (02:47)
[2017-04-03] MEDS: VANCOMYCIN INJ 1,750 MG in SODIUM CHLORIDE 0.9% 500 ML IV SCH ×2 (02:47→14:13)
[2017-04-03 05:59] LABS: Calcium 8.3 MG/DL (8.5-10.1); Osmolality,Calculated 278.1 MOS/KG (273-304); Potassium 3.9 MMOL/L (3.5-5.1)
[2017-04-03] MEDS: PANTOPRAZOLE 40 MG TABLET PO SCH (08:43)
[2017-04-03] MEDS: LEVOTHYROXINE 75 MCG TABLET PO SCH (08:43)
[2017-04-03] MEDS: FUROSEMIDE 40 MG/4 ML VIAL IV SCH ×2 (08:44→17:34)
--- NOTE | 2017-04-03 11:29 | Infectious Disease Progress ---
Assessment and Plan (1) Cellulitis Status: Acute Assessment and plan: Slowly improving and renal function remains normal on vancomycin. Recommendations: Continue vancomycin, trough pending for today. Check renal function again tomorrow. Current Visit: Yes (2) Candidal intertrigo Status: Acute Assessment and plan: Improved with antifungal therapy Current Visit: Yes Infectious Disease - PN: Subj Interval history: Patient doing okay, still painful left leg but somewhat improved. She has not fever. Tolerating antibiotic without nausea vomiting or diarrhea. Infectious Disease Exam (PN) - Constitutional Vitals: Temp Pulse Resp BP Pulse Ox 96.9 F L 60 16 124/70 94 L 04/03/17 07:50 04/03/17 07:50 04/03/17 07:50 04/03/17 07:50 04/03/17 07:50 General appearance: no acute distress, over weight Exam: General appearance: no acute distress - Eye Eye exam: Present: EOMI. no icterus Pupils: Present: LEONARDA - ENT ENT exam: no oral exudates - Extremities Exam Extremities exam: Definite reduction in the erythema to left leg, the edema is also somewhat reduced, cigar wrapper tender automatic to touch but less hyperemic. - Skin Skin exam: Rash to left groin crease and intergluteal cleft improving Results - Labs CBC & BMP: 03/31/17 03:53 04/03/17 05:09 Lab Results: I have reviewed the past 24 hour labs
--- NOTE | 2017-04-03 14:01 | Hospitalist Progress Note ---
Assessment and Plan (1) Left leg cellulitis Status: Acute Assessment and plan: Slowly improving. She no longer develops rash with antibiotic therapy.. MRI showed no osteomyelitis or abscess. BC-showed no growth so far. Doppler negative for a DVT. Plan Continue with current regime continue IV Lasix to 40bid, watch bp Hopefully dc on Saturday Current Visit: Yes (2) Melanoma Status: Chronic Assessment and plan: Pt is s/p cancer removal in September. Current Visit: Yes (3) Hypotension Status: Acute Assessment and plan: stable, Current Visit: Yes (4) Hypothyroidism Status: Acute Assessment and plan: Continue with synthroid Current Visit: Yes (5) Candidal intertrigo Status: Acute Assessment and plan: Improved with antifungal therapy Current Visit: Yes Hospitalist: Subjective Interval history: Patient's cellulitis is improving. Exam - Constitutional Vitals: Period Temp Pulse Resp BP Sys/Anderson Pulse Ox Last 24 Hr 96.5 F-98.1 F 55-66 16-20 100-124/63-76 92-96 General appearance: no acute distress - Head Head exam: Present: normal inspection - Respiratory Respiratory exam: Present: clear to auscultation bilaterally - Cardiovascular Cardiovascular exam: Present: regular rate and rhythm - GI/Abdominal GI/Abdominal exam: Present: normal bowel sounds - Extremities Exam Extremities exam: Present: other (left leg cellulitis) Results - Labs CBC & BMP: 03/31/17 03:53 04/03/17 05:09 Lab Results: I have reviewed the past 24 hour labs
[2017-04-03] MEDS: DESITIN 4OZ/NYSTATIN 15 GRAM MIXTURE PASTE TOP SCH ×2 (14:20→20:54)
[2017-04-03] MEDS: CLOTRIMAZOLE 1% CREAM 15 GM TUBE TOP SCH ×2 (14:20→20:54)
[2017-04-03] MEDS: ENOXAPARIN 40 MG/0.4 ML SYRINGE SUBCUT SCH (20:53)
[2017-04-04 07:29] LABS: Calcium 8.4 MG/DL (8.5-10.1); Osmolality,Calculated 277.3 MOS/KG (273-304); Potassium 3.9 MMOL/L (3.5-5.1)
[2017-04-04] MEDS: LEVOTHYROXINE 75 MCG TABLET PO SCH (08:21)
[2017-04-04] MEDS: FUROSEMIDE 40 MG/4 ML VIAL IV SCH ×2 (08:21→17:21)
[2017-04-04] MEDS: PANTOPRAZOLE 40 MG TABLET PO SCH (08:21)
[2017-04-04] MEDS: VANCOMYCIN INJ 1,750 MG in SODIUM CHLORIDE 0.9% 500 ML IV SCH (08:54)
--- NOTE | 2017-04-04 10:40 | Hospitalist Progress Note ---
Assessment and Plan (1) Left leg cellulitis Status: Acute Assessment and plan: much improved.. She no longer develops rash with antibiotic therapy.. MRI showed no osteomyelitis or abscess. BC-showed no growth so far. Doppler negative for a DVT. Plan Continue with IV vancomycin continue IV Lasix to 40bid, watch bp Hopefully dc in am Current Visit: Yes (2) Melanoma Status: Chronic Assessment and plan: Pt is s/p cancer removal from the left calf area along with lymph nodes in September. Outpt follow up Current Visit: Yes (3) Hypotension Status: Acute Assessment and plan: stable, Current Visit: Yes (4) Hypothyroidism Status: Acute Assessment and plan: Continue with synthroid Current Visit: Yes (5) Candidal intertrigo Status: Acute Assessment and plan: Improved with antifungal therapy Current Visit: Yes (6) Obesity (BMI 30-39.9) Status: Acute Assessment and plan: [id number], TSH noted Plan Dietitian consult Current Visit: Yes Hospitalist: Subjective Interval history: 62yr old who recent had a removal of melanoma from her left calf area along with lymph nodes was admitted for left leg cellulitis.MRI showed no osteomyelitis or abscess.BC-showed no growth so far. Doppler negative for a DVT. ID saw in consultation because the cellulitis was initially not improving.ID added cefazolin and later switched to Vanc which has really helped. Patient is unable to afford antibiotics so we are keeping her till am and hopefully can be dcd. We will also start PT today and she may need outpt continuation. Exam - Constitutional Vitals: Period Temp Pulse Resp BP Sys/Anderson Pulse Ox Last 24 Hr 96.5 F-99 F 58-76 16-20 99-120/59-75 92-97 General appearance: no acute distress, morbidly obese - Head Head exam: Present: normal inspection - Respiratory Respiratory exam: Present: clear to auscultation bilaterally - Cardiovascular Cardiovascular exam: Present: regular rate and rhythm - GI/Abdominal GI/Abdominal exam: Present: normal bowel sounds - Extremities Exam Extremities exam: Present: other (improving left leg cellulitis) - Neurological Exam Neurological exam: Present: alert, oriented X3 Results - Labs CBC & BMP: 03/31/17 03:53 04/04/17 06:07 Lab Results: I have reviewed the past 24 hour labs
[2017-04-04] MEDS: DESITIN 4OZ/NYSTATIN 15 GRAM MIXTURE PASTE TOP SCH ×2 (11:46→20:11)
[2017-04-04] MEDS: CLOTRIMAZOLE 1% CREAM 15 GM TUBE TOP SCH ×2 (11:46→20:11)
--- NOTE | 2017-04-04 15:20 | Infectious Disease Progress ---
Assessment and Plan (1) Cellulitis Status: Acute Assessment and plan: Slowly improving and renal function remains normal on vancomycin, level of which was slightly supratherapeutic. Recommendations: Continue vancomycin; dose increased by pharmacy and I appreciate their assistance. Check renal function again tomorrow. Current Visit: Yes (2) Candidal intertrigo Status: Acute Assessment and plan: Improved with antifungal therapy Current Visit: Yes Infectious Disease - PN: Subj Interval history: Doing relatively okay but says she still has a lot of pain to her left leg. Has not fever. No nausea vomiting or diarrhea on antibiotic. Infectious Disease Exam (PN) - Constitutional Vitals: Temp Pulse Resp BP Pulse Ox 97.0 F L 68 18 86/51 95 04/04/17 12:00 04/04/17 12:00 04/04/17 12:00 04/04/17 12:00 04/04/17 12:00 General appearance: no acute distress, morbidly obese Exam: General appearance: no acute distress - Eye Eye exam: Present: EOMI. no icterus Pupils: Present: LEONARDA - ENT ENT exam: no oral exudates - Extremities Exam Extremities exam: Still some erythema to left leg, but the edema is definitely decreasing, back tender pulp drier to touch. Results - Labs CBC & BMP: 03/31/17 03:53 04/04/17 06:07 Lab Results: I have reviewed the past 24 hour labs
[2017-04-04] MEDS: ENOXAPARIN 40 MG/0.4 ML SYRINGE SUBCUT SCH (20:11)
[2017-04-05] MEDS: VANCOMYCIN INJ 1,750 MG in SODIUM CHLORIDE 0.9% 500 ML IV SCH ×2 (03:21→14:26)
[2017-04-05 06:07] LABS: Calcium 8.8 MG/DL (8.5-10.1); Osmolality,Calculated 279.1 MOS/KG (273-304); Potassium 3.8 MMOL/L (3.5-5.1)
--- NOTE | 2017-04-05 08:14 | Hospitalist Progress Note ---
Assessment and Plan - Time spent with patient Time spent with patient: Less than 30 minutes (1) Left leg cellulitis Status: Acute Assessment and plan: Continue current IV antibiotics. Appreciate ID f/u. CBC today. Consult PT today. Current Visit: Yes (2) Candidal intertrigo Status: Acute Assessment and plan: Continue current antifungal therapy Current Visit: Yes (3) Obesity Status: Acute Current Visit: Yes Hospitalist: Subjective Interval history: Swelling is better in last few days. Still has tenderness and warmness on left leg. Will check CBC, consult PT. May able to dc home in next couple of days. Exam - Constitutional Vitals: Period Temp Pulse Resp BP Sys/Anderson Pulse Ox Last 24 Hr 97 F-97.9 F 62-68 18-20 86-106/51-67 90-95 Exam: General: NAD, AAOx3. HEENT: AT NC EOMI, normal lips and teeth Lungs: B/l CTA ABD: +BS NT ND Skin: Redness, swelling, warmness and tenderness on left leg Neuro: AAOx3 Results - Labs CBC & BMP: 03/31/17 03:53 04/05/17 05:14
[2017-04-05 08:27] LABS: Basophils % 0.3 % (0.0-0.8); Eosinophils # 0.1 10*3/uL (0.0-0.87); Eosinophils % 0.9 % (0.00-10.9); Hematocrit 29.2 VOL% (35.7-47.0); Hemoglobin 9.4 GM/DL (12.0-16.0); Immature Granulocytes % 6.9 %; Immature Granulocytes Absolute 0.97 #; Lymphocytes # 2.4 10*3/uL (1.4-4.0); Lymphocytes % 16.8 % (21.3-54.2); Mean Corpuscular HGB Conc 32.2 GM/DL (32-36); Mean Corpuscular Hemoglobin 30 PG (27-34); Mean Corpuscular Volume 92.1 FL (87-102); Mean Platelet Volume 9.5 FL (9.6-12.0); Monocytes # 0.9 10*3/uL (0.11-0.8); Monocytes % 6.6 % (1.7-12.7); NRBC # 0.03 10*3/uL; Neutrophils # 9.7 10*3/uL (1.4-7.4); Neutrophils % 68.5 % (38.7-73.9); Platelet Count 533 T/CUMM (130-400); Red Blood Count 3.17 MC/CUMM (3.8-5.5); Red Cell Distribution Width 15.6 % (9.3-17.3); White Blood Count 14.1 T/CUMM (4-12)
[2017-04-05] MEDS: LEVOTHYROXINE 75 MCG TABLET PO SCH (09:09)
[2017-04-05] MEDS: PANTOPRAZOLE 40 MG TABLET PO SCH (09:10)
[2017-04-05] MEDS: CLOTRIMAZOLE 1% CREAM 15 GM TUBE TOP SCH ×2 (09:11→20:38)
[2017-04-05] MEDS: DESITIN 4OZ/NYSTATIN 15 GRAM MIXTURE PASTE TOP SCH ×2 (09:11→20:38)
[2017-04-05 09:17] LABS: Band Neutrophils 9 % (0-10); Eosinophils 1 % (0-10); Hypochromasia 1+; Lymphocytes 16 % (20-55); Microcytosis Slight; Nucleated Red Blood Cells 1 (0-5); Segmented Neutrophils 70 % (50-85); Total Cells Counted 100
--- NOTE | 2017-04-05 12:25 | Infectious Disease Progress ---
Assessment and Plan (1) Cellulitis Status: Acute Assessment and plan: Slow to improve but definitely better than the start of the week. Recommendations: Can continue vancomycin for a few more days; may be next week and go home on oral antibiotics. Current Visit: Yes (2) Candidal intertrigo Status: Acute Assessment and plan: Resolved Current Visit: Yes Infectious Disease - PN: Subj Interval history: Patient doing fairly okay, still complains of pain to left leg. She has not had fever. Eating well no nausea vomiting or diarrhea. Infectious Disease Exam (PN) - Constitutional Vitals: Temp Pulse Resp BP Pulse Ox 96.8 F L 60 18 112/65 91 L 04/05/17 08:00 04/05/17 08:00 04/05/17 08:00 04/05/17 08:00 04/05/17 08:00 General appearance: no acute distress, morbidly obese Exam: General appearance: no acute distress - Eye Eye exam: Present: EOMI. no icterus Pupils: Present: LEONARDA - ENT ENT exam: no oral exudates - Extremities Exam Extremities exam: The erythema and edema to the left leg has slowly improved since Saturday, there is still some tenderness on palpation, no fluctuant areas. - Skin Rash to left groin and intergluteal creases resolved Results - Labs CBC & BMP: 04/05/17 05:12 04/05/17 05:14 Lab Results: I have reviewed the past 24 hour labs
[2017-04-05] MEDS: FUROSEMIDE 40 MG/4 ML VIAL IV SCH ×2 (14:13→16:07)
[2017-04-05] MEDS: ENOXAPARIN 40 MG/0.4 ML SYRINGE SUBCUT SCH (20:34)
[2017-04-06] MEDS: VANCOMYCIN INJ 1,750 MG in SODIUM CHLORIDE 0.9% 500 ML IV SCH (04:30)
[2017-04-06] MEDS: FUROSEMIDE 40 MG/4 ML VIAL IV SCH ×2 (09:35→16:08)
[2017-04-06] MEDS: LEVOTHYROXINE 75 MCG TABLET PO SCH (09:40)
[2017-04-06] MEDS: PANTOPRAZOLE 40 MG TABLET PO SCH (09:40)
[2017-04-06] MEDS: DESITIN 4OZ/NYSTATIN 15 GRAM MIXTURE PASTE TOP SCH (09:43)
[2017-04-06] MEDS: CLOTRIMAZOLE 1% CREAM 15 GM TUBE TOP SCH (09:44)
[2017-04-06] MEDS ORDERED: methylPREDNISolone 4 MG TABLET PO SCH ×2 (12:00)
--- NOTE | 2017-04-06 13:19 | Discharge Summary ---
<Dulce Goodrichda - Last Filed: 04/06/17 12:36> Hospital Course - Hospital Course Hospital Course: This is a very pleasant 62-year-old female that presented to the ED at [facility] on the afternoon of March 26, 2017 for the evaluation of left lower extremity pain and edema. The patient reports a medical history significant for skin cancer and a surgical history significant for melanoma removal from the left calf area along with lymph node removal from the left groin in September 2016. The patient reported onset 2 days prior to presentation. She reported that she noticed that her lower extremity had become erythemic, warm to touch, and painful. She reported that the pain gradually increased over 2 days to the point where it became unbearable. In addition, the patient reported that she experience fever, chills, and myalgias; however denied shortness of breath or chest pain. The pain became absolutely unbearable prompting the patient to present to the ED for further evaluation. The patient was seen and examined at the time of ED presentation. Labs were obtained; which reported white blood cell count of 14.1, hemoglobin 11.9, hematocrit 37.1, platelet count at 309, sodium 133, potassium 4.1, chloride 101 , carbon dioxide 25, BUN 13, creatinine 1.00, and glucose at 113. Venous Dopplers of the left lower extremities were negative for the presence of deep vein thrombosis. The patient was subsequently admitted to the hospitalist services for continuation of care. Empiric antibiotic coverage was initiated after pancultures were obtained. In addition, DVT prophylaxis, gentle rehydration, and pain management was initiated. Although aggressive interventions were initiated, the patient's condition failed to improve. An infectious disease consultation was requested to evaluate and recommendations were given. The patient's antibiotic coverage was de-escalated and she was subsequently started on cefazolin 1 g IV every 6 hours. The patient continued to experience gross leukocytosis and on April 01, 2017, the patient's antibiotics were de-escalated again and the patient was started on vancomycin. Gentle diuresis was initiated. Blood cultures were essentially unremarkable no growth to date was noted at 5 days. The patient's condition gradually improved. The patient's condition is stable. She has not experienced any significant overnight events. Today, we feel that she is indeed appropriate for discharge home to follow-up with her primary care physician as indicated. The patient will be discharged with instructions for Minocycline 100 mg by mouth twice daily for 10 days. In addition, the patient will be discharged with Medrol dose pack administered as indicated. Discharge Plan - Discharge Data Disposition: Disch To Home/Self Care - Discharge Medications New Levothyroxine Tab [Synthroid Tab] 37.5 mcg PO DAILY@0730 #30 tablet Minocycline [Minocin] 100 mg PO Q12HR #20 capsule Pantoprazole Tab [Protonix Tab] 40 mg PO DAILY #30 tablet Clotrimazole 1% Cream [Lotrimin 1% Cream] 1 applic TOP BID #1 vial methylPREDNISolone TAB [Medrol] 8 mg PO 1300 #1 packet - Follow Up or Referral - Forms/Instructions Exam - Constitutional Vitals: Period Temp Pulse Resp BP Sys/Anderson Pulse Ox Last 24 Hr 96.5 F-97.6 F 60-67 18-20 110-131/54-69 89-96 Discharge Results Procedures and tests throughout hospitalization: Pending Orders 04/07/17 00:00 Vancomycin,Trough Timed DS: Provider Date of admission: 03/26/17 13:19 Primary care physician: . No PCP Attending physician on admission: Elisabet Dumont MD Consults: 03/27/17 10:13 Consult to Wound Care - [place] [CONS] Routine Reason for Wound Care: Wound Care Management Consult Comment: cellulitis left leg 03/28/17 09:34 Consult to Physician [CONS] Routine Comment: cellulitis left leg Consulting Provider: Elise Calloway Consult Notification Comment: has been seen per doctors reports 03/31/17 11:30 Consult to Pharmacy [CONS] Routine Reason for Pharmacy Consult: Dose/Manage Vancomycin 04/04/17 08:39 Consult to Physical Therapy [CONS] Routine Reason for Physical Therapy: Ambulation Consult Comment: limited ROM to left leg, pain upon bending knee 04/04/17 10:43 Consult to Dietitian [CONS] Routine Reason for Dietitian: Dietary Consult 04/05/17 08:19 Consult to Physical Therapy [CONS] Routine Reason for Physical Therapy: Ambulation Discharging clinician: Conrad Goodrich CNP <Everette Wagner - Last Filed: 04/06/17 16:23> Discharge Plan - Discharge Data Condition at Discharge: Stable Discharge Diet: heart healthy Activity: increase activity as tolerated, other (Off load right lower extremity as much as possible) Hygiene: no restrictions Contact your physician if you experience:: fever over 101, Shortness of breath, pain uncontrolled by pain medications
[2017-04-06 16:34] VITALS: BP 127/79
[2017-04-06] MEDS ORDERED: MINOCYCLINE 100 MG CAPSULE PO SCH (21:00)
== END 2017-04-06 17:45 | disposition home or self-care (01) | DRG 603 ==
LOC: N.ED 11:12 → SUATTDRO 13:19 → N.EDINP 13:19 → N.2E 14:14
PROVIDERS: ADMIT Internal Medicine; ATTEND Internal Medicine Infectious Disease

== ENCOUNTER 2018-08-12 09:14 | Inpatient (IN) ==
[2018-08-12] MEDS ORDERED: CEFTAROLINE 600 MG in SODIUM CHLORIDE 0.9% 100 ML IV STA (09:58)
[2018-08-12 10:15] LABS: Basophils # 0.1 10*3/uL (0.0-0.2); Basophils % 0.7 % (0.0-0.8); Eosinophils # 0.2 10*3/uL (0.0-0.87); Eosinophils % 1.8 % (0.00-10.9); Hematocrit 31.7 VOL% (35.7-47.0); Hemoglobin 9.9 GM/DL (12.0-16.0); Immature Granulocytes % 1.5 %; Immature Granulocytes Absolute 0.13 #; Lymphocytes # 1.8 10*3/uL (1.4-4.0); Lymphocytes % 20.3 % (21.3-54.2); Mean Corpuscular HGB Conc 31.2 GM/DL (32-36); Mean Corpuscular Hemoglobin 30 PG (27-34); Mean Corpuscular Volume 95.5 FL (87-102); Mean Platelet Volume 10.3 FL (9.6-12.0); Monocytes # 0.6 10*3/uL (0.11-0.8); Monocytes % 6.7 % (1.7-12.7); Neutrophils # 6.2 10*3/uL (1.4-7.4); Platelet Count 321 T/CUMM (130-400); Red Blood Count 3.32 MC/CUMM (3.8-5.5); Red Cell Distribution Width 16.8 % (9.3-17.3)
[2018-08-12 10:37] LABS: Alanine Aminotransferase 30 U/L (13-56); Albumin 3.4 G/DL (3.4-5.0); Alkaline Phosphatase 149 U/L (45-117); Aspartate Amino Transferase 24 U/L (0-37); Bilirubin,Total < 0.39 MG/DL (0.2-1.0); Blood Urea Nitrogen 8 MG/DL (7-18); Calcium 8.8 MG/DL (8.5-10.1); Glucose 90 MG/DL (74-106); Osmolality,Calculated 272.7 MOS/KG (273-304); Potassium 4.2 MMOL/L (3.5-5.1); Sodium 138 MMOL/L (136-145); Total Protein 7.3 G/DL (6.4-8.3)
[2018-08-12] MEDS ORDERED: DOCUSATE SODIUM 100 MG CAPSULE PO PRN (11:15)
[2018-08-12] MEDS ORDERED: ONDANSETRON 4 MG/2 ML VIAL IV PRN (11:15)
[2018-08-12] MEDS ORDERED: ACETAMINOPHEN 325 MG TABLET PO PRN (11:15)
[2018-08-12] MEDS ORDERED: IBUPROFEN 200 MG TABLET PO PRN (11:17)
[2018-08-12] MEDS: FUROSEMIDE 40 MG/4 ML VIAL IV SCH (14:50)
[2018-08-12] MEDS: ENOXAPARIN 40 MG/0.4 ML SYRINGE SUBCUT SCH (14:50)
[2018-08-12] MEDS: IBUPROFEN 400 MG TABLET PO SCH (21:02)
[2018-08-12] MEDS: diphenhydrAMINE CAP 50 MG CAPSULE PO SCH (21:02)
[2018-08-12] MEDS: CEFTAROLINE 600 MG in SODIUM CHLORIDE 0.9% 100 ML IV SCH (22:43)
[2018-08-13 07:52] LABS: Basophils # 0.1 10*3/uL (0.0-0.2); Basophils % 0.8 % (0.0-0.8); Eosinophils # 0.2 10*3/uL (0.0-0.87); Eosinophils % 2.5 % (0.00-10.9); Hematocrit 29.6 VOL% (35.7-47.0); Hemoglobin 9.2 GM/DL (12.0-16.0); Immature Granulocytes Absolute 0.17 #; Lymphocytes % 23.7 % (21.3-54.2); Mean Corpuscular HGB Conc 31.1 GM/DL (32-36); Mean Corpuscular Hemoglobin 29 PG (27-34); Mean Corpuscular Volume 94.3 FL (87-102); Mean Platelet Volume 10.5 FL (9.6-12.0); Monocytes # 0.7 10*3/uL (0.11-0.8); Monocytes % 7.9 % (1.7-12.7); Neutrophils # 5.4 10*3/uL (1.4-7.4); Neutrophils % 63.1 % (38.7-73.9); Platelet Count 336 T/CUMM (130-400); Red Blood Count 3.14 MC/CUMM (3.8-5.5); Red Cell Distribution Width 17.2 % (9.3-17.3); White Blood Count 8.6 T/CUMM (4-12)
[2018-08-13 08:19] LABS: Calcium 8.5 MG/DL (8.5-10.1); Osmolality,Calculated 281.1 MOS/KG (273-304)
[2018-08-13] MEDS: PANTOPRAZOLE 40 MG TABLET PO SCH (08:38)
[2018-08-13] MEDS: FUROSEMIDE 40 MG/4 ML VIAL IV SCH (08:39)
[2018-08-13 08:56] LABS: Cholesterol 148 MG/DL (50-200); Free T4 (Free Thyroxine) < 0.20 NG/DL (0.76-1.46); HDL Cholesterol 22 MG/DL (40-60); Risk Ratio 6.73; Triglycerides 151 MG/DL (2-150); VLDL CHOLESTEROL 30.2 MG/DL
[2018-08-13] MEDS: CEFTAROLINE 600 MG in SODIUM CHLORIDE 0.9% 100 ML IV SCH ×2 (09:42→21:41)
[2018-08-13] MEDS: ENOXAPARIN 40 MG/0.4 ML SYRINGE SUBCUT SCH (12:41)
[2018-08-13] MEDS: diphenhydrAMINE CAP 50 MG CAPSULE PO SCH (20:20)
[2018-08-13] MEDS: IBUPROFEN 400 MG TABLET PO SCH (20:20)
[2018-08-13] MEDS: DESITIN 4OZ/NYSTATIN 15 GRAM MIXTURE PASTE TOP SCH (20:21)
[2018-08-14] MEDS ORDERED: LEVOTHYROXINE 100 MCG TABLET PO SCH (06:30)
[2018-08-14] MEDS: FUROSEMIDE 40 MG/4 ML VIAL IV SCH (09:35)
[2018-08-14] MEDS: DESITIN 4OZ/NYSTATIN 15 GRAM MIXTURE PASTE TOP SCH (09:36)
[2018-08-14] MEDS: PANTOPRAZOLE 40 MG TABLET PO SCH (09:36)
[2018-08-14] MEDS: CEFTAROLINE 600 MG in SODIUM CHLORIDE 0.9% 100 ML IV SCH (09:36)
[2018-08-14] MEDS: ENOXAPARIN 40 MG/0.4 ML SYRINGE SUBCUT SCH (11:12)
[2018-08-14 13:16] VITALS: BP 100/70
== END 2018-08-14 13:51 | disposition home or self-care (01) | DRG 603 ==
LOC: N.ED 09:14 → N.EDINP 11:43 → N.5E 11:51
PROVIDERS: ADMIT Internal Medicine; ATTEND Internal Medicine

== ENCOUNTER 2019-02-25 12:15 | Observation (INO) ==
[2019-02-25] MEDS ORDERED: CEFTAROLINE 600 MG in SODIUM CHLORIDE 0.9% 100 ML IV STA (13:05)
[2019-02-25 13:56] LABS: Basophils % 0.5 % (0.0-0.8); Eosinophils # 0.1 10*3/uL (0.0-0.87); Eosinophils % 1.4 % (0.00-10.9); Hematocrit 34.7 VOL% (35.7-47.0); Hemoglobin 10.6 GM/DL (12.0-16.0); Immature Granulocytes % 0.5 %; Immature Granulocytes Absolute 0.04 #; Lymphocytes # 1.6 10*3/uL (1.4-4.0); Lymphocytes % 19.7 % (21.3-54.2); Mean Corpuscular HGB Conc 30.5 GM/DL (32-36); Mean Corpuscular Volume 93.5 FL (87-102); Mean Platelet Volume 10.2 FL (9.6-12.0); Neutrophils % 71.9 % (38.7-73.9); Platelet Count 291 T/CUMM (130-400); Red Blood Count 3.71 MC/CUMM (3.8-5.5); Red Cell Distribution Width 17.2 % (9.3-17.3); White Blood Count 8.3 T/CUMM (4-12)
[2019-02-25 14:03] LABS: Albumin 3.9 G/DL (3.4-5.0); Bilirubin,Total 0.6 MG/DL (0.2-1.0); Calcium 9.4 MG/DL (8.5-10.1); Osmolality,Calculated 269.1 MOS/KG (273-304); Total Protein 8.3 G/DL (6.4-8.3)
[2019-02-25] MEDS ORDERED: ONDANSETRON 4 MG/2 ML VIAL IV PRN (14:45)
[2019-02-25] MEDS ORDERED: ENOXAPARIN 40 MG/0.4 ML SYRINGE SUBCUT SCH (15:00)
[2019-02-25] MEDS ORDERED: DALBAVANCIN 1,500 MG in DEXTROSE 5% 500 ML IV ONE (15:20)
[2019-02-25] MEDS ORDERED: PNEUMOCOCCAL VACCINE (13 VALENT) 0.5 ML SYRINGE IM ONE (16:32)
[2019-02-25] MEDS: SODIUM CHLORIDE 0.9% 1,000 ML IV SCH (16:38)
[2019-02-25] MEDS ORDERED: VANCOMYCIN INJ 1,500 MG in SODIUM CHLORIDE 0.9% 250 ML IV ONE (17:00)
[2019-02-25 19:15] LABS: Apearance,Urine CLEAR (Clear); Bilirubin,Urine Negative (Negative); Blood, Urine Negative (Negative); Glucose,Urine (UA) Negative (Negative); Ketones,Urine Negative (Negative); Mucus,Urine Occasional /LPF (Occasional); Nitrite,Urine Negative (Negative); Protein,Urine Negative; RBC,Urine 1 /HPF (0-4); Squamous Epithelial Cell,Urine Occasional /HPF (0-10); Urine Color Yellow (Yellow); Urine Specific Gravity 1.011 (1.001-1.035); Urine Urobilinogen < 2.0 EU/DL (0.2-1.0); WBC,Urine 2 /HPF (0-6)
[2019-02-26] MEDS: SODIUM CHLORIDE 0.9% 1,000 ML IV SCH (04:59)
[2019-02-26 06:05] LABS: Basophils % 0.6 % (0.0-0.8); Eosinophils # 0.1 10*3/uL (0.0-0.87); Eosinophils % 1.7 % (0.00-10.9); Hematocrit 28.4 VOL% (35.7-47.0); Hemoglobin 8.7 GM/DL (12.0-16.0); Immature Granulocytes % 0.6 %; Immature Granulocytes Absolute 0.04 #; Lymphocytes # 1.6 10*3/uL (1.4-4.0); Lymphocytes % 21.8 % (21.3-54.2); Mean Corpuscular HGB Conc 30.6 GM/DL (32-36); Mean Corpuscular Volume 94.4 FL (87-102); Mean Platelet Volume 10.6 FL (9.6-12.0); Monocytes % 5.9 % (1.7-12.7); Neutrophils % 69.4 % (38.7-73.9); Platelet Count 273 T/CUMM (130-400); Red Blood Count 3.01 MC/CUMM (3.8-5.5); Red Cell Distribution Width 17.2 % (9.3-17.3); White Blood Count 7.1 T/CUMM (4-12)
[2019-02-26 07:08] LABS: Albumin 2.9 G/DL (3.4-5.0); Bilirubin,Total 0.5 MG/DL (0.2-1.0); Calcium 8.4 MG/DL (8.5-10.1); Osmolality,Calculated 277.4 MOS/KG (273-304); Total Protein 6.6 G/DL (6.4-8.3)
[2019-02-26 08:45] VITALS: BP 102/66
[2019-02-26] MEDS ORDERED: PANTOPRAZOLE 40 MG TABLET PO SCH (09:00)
== END 2019-02-26 10:11 | disposition home or self-care (01) ==
LOC: N.2E 12:15 → N.ED 12:15 → N.2E 15:44
PROVIDERS: ADMIT Hospitalist; ATTEND Hospitalist

== ENCOUNTER 2022-04-03 08:10 | Inpatient (IN) ==
[2022-04-03 08:58] LABS: Calcium 10.1 MG/DL (8.5-10.1); Potassium 4.1 MMOL/L (3.5-5.1)
[2022-04-03 09:33] LABS: Basophils % 0.2 % (0.0-0.8); Eosinophils % 0.1 % (0.00-10.9); Hematocrit 33.2 VOL% (35.7-47.0); Hemoglobin 10.6 GM/DL (12.0-16.0); Immature Granulocytes % 1.2 %; Lymphocytes # 0.9 10*3/uL (1.4-4.0); Lymphocytes % 5.3 % (21.3-54.2); Mean Corpuscular HGB Conc 31.9 GM/DL (32-36); Mean Corpuscular Volume 95.4 FL (87-102); Mean Platelet Volume 10.7 FL (9.6-12.0); Monocytes # 0.4 10*3/uL (0.11-0.8); Monocytes % 2.4 % (1.7-12.7); Neutrophils % 90.8 % (38.7-73.9); Platelet Count 258 T/CUMM (130-400); Red Blood Count 3.48 MC/CUMM (3.8-5.5); Red Cell Distribution Width 15.7 % (9.3-17.3); White Blood Count 17.4 T/CUMM (4-12)
[2022-04-03 09:42] LABS: INR 1.1; PT Patient Result 12.4 SECS (10.1-12.1)
[2022-04-03] MEDS ORDERED: cefTRIAXone 1,000 MG in SODIUM CHLORIDE 0.9% 100 ML IV STA (10:28)
[2022-04-03] MEDS: SODIUM CHLORIDE 0.45% 1,000 ML IV SCH (10:53)
[2022-04-03] MEDS: POLYETHYLENE GLYCOL POWDER 17 GM PACK PO SCH (10:56)
[2022-04-03] MEDS: ACETAMINOPHEN 325 MG TABLET PO PRN (11:59)
[2022-04-03] MEDS ORDERED: PNEUMOCOCCAL VACCINE (13 VALENT) 0.5 ML SYRINGE IM ONE (12:23)
[2022-04-03] MEDS: ENOXAPARIN 40 MG/0.4 ML SYRINGE SUBCUT SCH (13:17)
[2022-04-04] MEDS: SODIUM CHLORIDE 0.45% 1,000 ML IV SCH ×3 (03:25→15:35)
[2022-04-04 06:27] LABS: Basophils % 0.2 % (0.0-0.8); Eosinophils # 0.1 10*3/uL (0.0-0.87); Eosinophils % 0.4 % (0.00-10.9); Hemoglobin 9.5 GM/DL (12.0-16.0); Immature Granulocytes % 0.8 %; Immature Granulocytes Absolute 0.11 #; Lymphocytes # 1.1 10*3/uL (1.4-4.0); Lymphocytes % 8.1 % (21.3-54.2); Mean Corpuscular HGB Conc 31.7 GM/DL (32-36); Mean Corpuscular Volume 96.2 FL (87-102); Mean Platelet Volume 11.5 FL (9.6-12.0); Monocytes # 0.3 10*3/uL (0.11-0.8); Monocytes % 2.5 % (1.7-12.7); Platelet Count 240 T/CUMM (130-400); Red Blood Count 3.12 MC/CUMM (3.8-5.5); White Blood Count 13.5 T/CUMM (4-12)
[2022-04-04 06:47] LABS: Calcium 9.4 MG/DL (8.5-10.1); Osmolality,Calculated 277.7 MOS/KG (273-304); Potassium 3.9 MMOL/L (3.5-5.1)
[2022-04-04] MEDS ORDERED: cefTRIAXone 2,000 MG in SODIUM CHLORIDE 0.9% 100 ML IV SCH (09:00)
[2022-04-04] MEDS: ACETAMINOPHEN 325 MG TABLET PO PRN ×2 (09:02→15:17)
[2022-04-04] MEDS: cefTRIAXone 2,000 MG in SODIUM CHLORIDE 0.9% 100 ML IV SCH (09:03)
[2022-04-04] MEDS: ENOXAPARIN 40 MG/0.4 ML SYRINGE SUBCUT SCH (09:03)
[2022-04-04] MEDS: POLYETHYLENE GLYCOL POWDER 17 GM PACK PO SCH (09:03)
[2022-04-04] MEDS ORDERED: cefTRIAXone 1,000 MG in SODIUM CHLORIDE 0.9% 100 ML IV SCH (10:30)
[2022-04-04] MEDS: NYSTATIN POWDER 15 GM BOTTLE TOP SCH ×2 (11:19→20:52)
[2022-04-05] MEDS: cefTRIAXone 2,000 MG in SODIUM CHLORIDE 0.9% 100 ML IV SCH (08:02)
[2022-04-05] MEDS: SODIUM CHLORIDE 0.45% 1,000 ML IV SCH ×2 (08:03→11:07)
[2022-04-05] MEDS: NYSTATIN POWDER 15 GM BOTTLE TOP SCH ×2 (08:03→21:03)
[2022-04-05] MEDS: POLYETHYLENE GLYCOL POWDER 17 GM PACK PO SCH (08:03)
[2022-04-05] MEDS: ENOXAPARIN 40 MG/0.4 ML SYRINGE SUBCUT SCH (08:03)
[2022-04-05 13:40] LABS: Basophils # 0.1 10*3/uL (0.0-0.2); Basophils % 0.6 % (0.0-0.8); Eosinophils # 0.1 10*3/uL (0.0-0.87); Hematocrit 31.9 VOL% (35.7-47.0); Hemoglobin 10.2 GM/DL (12.0-16.0); Immature Granulocytes % 0.9 %; Immature Granulocytes Absolute 0.08 #; Lymphocytes # 1.2 10*3/uL (1.4-4.0); Lymphocytes % 13.5 % (21.3-54.2); Mean Corpuscular Volume 95.8 FL (87-102); Mean Platelet Volume 11.1 FL (9.6-12.0); Monocytes # 0.3 10*3/uL (0.11-0.8); Monocytes % 2.9 % (1.7-12.7); Neutrophils % 81.1 % (38.7-73.9); Platelet Count 265 T/CUMM (130-400); Red Blood Count 3.33 MC/CUMM (3.8-5.5); Red Cell Distribution Width 15.6 % (9.3-17.3); White Blood Count 8.7 T/CUMM (4-12)
[2022-04-05] MEDS: LACTATED RINGERS 1,000 ML IV SCH (13:47)
[2022-04-05 14:19] LABS: Calcium 9.1 MG/DL (8.5-10.1); Osmolality,Calculated 276.5 MOS/KG (273-304); Potassium 3.8 MMOL/L (3.5-5.1)
[2022-04-05] MEDS: ACETAMINOPHEN 325 MG TABLET PO PRN (19:55)
[2022-04-06 05:41] LABS: Basophils % 0.5 % (0.0-0.8); Eosinophils # 0.1 10*3/uL (0.0-0.87); Eosinophils % 1.8 % (0.00-10.9); Hematocrit 30.3 VOL% (35.7-47.0); Hemoglobin 9.6 GM/DL (12.0-16.0); Immature Granulocytes % 0.9 %; Immature Granulocytes Absolute 0.06 #; Lymphocytes # 1.3 10*3/uL (1.4-4.0); Lymphocytes % 19.4 % (21.3-54.2); Mean Corpuscular HGB Conc 31.7 GM/DL (32-36); Mean Corpuscular Volume 95.9 FL (87-102); Mean Platelet Volume 11.2 FL (9.6-12.0); Monocytes # 0.3 10*3/uL (0.11-0.8); Monocytes % 4.1 % (1.7-12.7); Neutrophils % 73.3 % (38.7-73.9); Platelet Count 264 T/CUMM (130-400); Red Blood Count 3.16 MC/CUMM (3.8-5.5); Red Cell Distribution Width 15.7 % (9.3-17.3); White Blood Count 6.5 T/CUMM (4-12)
[2022-04-06 05:57] LABS: Osmolality,Calculated 276.4 MOS/KG (273-304)
[2022-04-06] MEDS: LACTATED RINGERS 1,000 ML IV SCH ×2 (08:36→09:30)
[2022-04-06] MEDS: cefTRIAXone 2,000 MG in SODIUM CHLORIDE 0.9% 100 ML IV SCH (09:29)
[2022-04-06] MEDS: POLYETHYLENE GLYCOL POWDER 17 GM PACK PO SCH (09:29)
[2022-04-06] MEDS: ACETAMINOPHEN 325 MG TABLET PO PRN ×2 (09:30→22:47)
[2022-04-06] MEDS: ENOXAPARIN 40 MG/0.4 ML SYRINGE SUBCUT SCH (09:30)
[2022-04-06] MEDS: NYSTATIN POWDER 15 GM BOTTLE TOP SCH ×2 (09:36→21:25)
[2022-04-07] MEDS: ACETAMINOPHEN 325 MG TABLET PO PRN (00:42)
[2022-04-07 08:30] VITALS: BP 124/73
[2022-04-07] MEDS: ENOXAPARIN 40 MG/0.4 ML SYRINGE SUBCUT SCH (10:13)
[2022-04-07] MEDS: cefTRIAXone 2,000 MG in SODIUM CHLORIDE 0.9% 100 ML IV SCH (10:14)
[2022-04-07] MEDS: NYSTATIN POWDER 15 GM BOTTLE TOP SCH (10:14)
[2022-04-07] MEDS: POLYETHYLENE GLYCOL POWDER 17 GM PACK PO SCH (10:15)
== END 2022-04-07 12:20 | disposition home or self-care (01) | DRG 863 ==
LOC: N.ED 08:10 → SUATTDRO 10:25 → N.EDINP 10:25 → N.5E 11:48
PROVIDERS: ADMIT Internal Medicine; ATTEND Internal Medicine